=== PATIENT | female | born 1990 | race African-American/Black ===

== ENCOUNTER 2024-01-08 10:02 | Emergency (ER) | payer MEDICAID ==
[~2024-01-08] VITALS: Ht 175.3 cm; Wt 127.0 kg
[2024-01-08 10:13] VITALS: BP 178/97; PULSE 91; RESP 16; TEMP 98.1; O2SAT 98
[2024-01-08] MEDS ORDERED: IBUP-2028 MT (12:19)
[2024-01-08] MEDS: DEXAMETHASONE 10 MG/ML VIAL PO ONE (12:56)
== END 2024-01-08 12:58 | disposition home or self-care (01) ==
LOC: ER 10:02
DX: J03.90 Acute tonsillitis, unspecified (principal); Z98.890 Other specified postprocedural states; Z20.822 Contact with and (suspected) exposure to COVID-19
CPT/HCPCS: 99283; 87426; 87430; 87070; 87804 ×2; J1100

== ENCOUNTER 2024-07-26 10:32 | Emergency (ER) | payer MEDICAID ==
[~2024-07-26] VITALS: Ht 170.2 cm; Wt 118.0 kg
[~2024-07-26 10:32] MED LIST: IBUP-2028 MT
[2024-07-26 10:41] VITALS: O2SAT 100
[2024-07-26] MEDS ORDERED: METH-653 MT (11:57)
[2024-07-26] MEDS ORDERED: LIDO700A15 TP (11:57)
[2024-07-26 12:30] VITALS: BP 152/87; PULSE 84; RESP 16; TEMP 36.83628; O2SAT 100
== END 2024-07-26 13:30 | disposition home or self-care (01) ==
LOC: ER 10:32
DX: S74.02XA Injury of sciatic nerve at hip and thigh level, left leg, initial encounter (principal); Z13.9 Encounter for screening, unspecified; X58.XXXA Exposure to other specified factors, initial encounter; Y93.89 Activity, other specified; Y92.89 Other specified places as the place of occurrence of the external cause; Y99.8 Other external cause status
CPT/HCPCS: 99283